=== PATIENT | female | born 1985 | race African-American/Black ===

== ENCOUNTER 2017-04-23 11:20 | Emergency (ER) | payer MEDICAID ==
[~2017-04-23] VITALS: Ht 170.2 cm; Wt 83.5 kg
[~2017-04-23 11:20] MED LIST: AMOXICILLIN500 MG ORAL; AUGMENTIN TAB875 MG ORAL; BACTRIM-DS1 EA ORAL; CYCLOBENZAPRINE10 MG ORAL; IBUPROFEN600 MG ORAL; LEVOTHYROXINE100 MCG ORAL; LEVOTHYROXINE150 MCG ORAL; NORCO 5-325 TA1 EAC1 ORAL; TIZANIDINE HCL4 MG ORAL
[2017-04-23 11:53] VITALS: BP 100/64
[2017-04-23] MEDS ORDERED: GABAPENTIN100 MG ORAL (12:38)
[2017-04-23] MEDS ORDERED: IBUPROFEN600 MG ORAL (12:38)
[2017-04-23 13:31] VITALS: BP 100/64
--- NOTE | 2017-04-23 18:50 | Diagnostic Imaging Report ---
Indication: Pain Technique: XRAY SHOULDER MIN 3V LEFT Comparison: None Findings: There is no acute fracture or dislocation. Calcifications noted in the left shoulder possibly reflective of calcific tendinitis. Imaged left lung is clear. Impression: No acute fracture or dislocation. Findings suggestive of calcific tendinitis of the left shoulder. MRI may be obtained for further evaluation as clinically indicated.
--- NOTE | 2017-04-23 18:52 | Diagnostic Imaging Report ---
Indication: Pain Technique: XRAY FOREARM 2 VIEWS LEFT Comparison: None Findings: There is no acute fracture or dislocation. The elbow and wrist articulations are preserved. No focal soft tissue abnormality is seen. No radiopaque foreign body. Impression: No acute fracture or dislocation.
--- NOTE | 2017-04-23 18:52 | Diagnostic Imaging Report ---
Indication: Pain Technique: XRAY HUMERUS 2V LEFT Comparison: None Findings: No acute fracture or dislocation. Elbow and shoulder joint are maintained. Calcification is noted in the left shoulder, better described on concurrent shoulder radiographs. Impression: No acute fracture or dislocation.
--- NOTE | 2017-04-24 21:49 | Emergency Room Report ---
History of Present Illness General Chief Complaint: Pain Source: Patient Present Illness HPI 31-year-old female presents ED complaining of left arm pain times one week. Denies any recent injury. Patient states she had similar pain in her right arm last year and was told by her PMD that she had "calcium deposits" in her arm. States that they completely resolved. Patient states the pain feels the same on the left arm now. Denies any chest pain. Pain is 10 out of 10, throbbing, nonradiating. No other aggravating relieving factors. Denies any other associated symptoms Allergies: Coded Allergies: No Known Allergies (Unverified , 07/08/13) Patient History Past Medical History: none Past Surgical History: none Pertinent Family History: none Social History: Denies: smoking, alcohol use, drug use Last Menstrual Period: 04/16/17 Now: No : 2 Para: 2 Immunizations: UTD Reviewed Nursing Documentation: PMH: Agreed, PSxH: Agreed Nursing Documentation-PMH Hx Hypertension: Yes Hx Gastrointestinal Problems: Yes - hypothyroid Review of Systems All Other Systems: negative except mentioned in HPI Physical Exam Vital Signs Date Time Temp Pulse Resp B/P (MAP) Pulse Ox O2 Delivery O2 Flow Rate FiO2 04/23/17 11:24 97.9 73 16 100/64 100 Room Air Sp02 EP Interpretation: reviewed, normal General Appearance: no apparent distress, alert, GCS 15, non-toxic Head: normocephalic, atraumatic Eyes: bilateral eye normal inspection, bilateral eye PERRL ENT: hearing grossly normal, normal pharynx, no angioedema, normal voice Neck: full range of motion, supple/symm/no masses Respiratory: chest non-tender, lungs clear, normal breath sounds, speaking full sentences Cardiovascular #1: regular rate, rhythm, no edema Cardiovascular #2: 2+ carotid (R), 2+ carotid (L), 2+ radial (R), 2+ radial (L) , 2+ dorsalis pedis (R), 2+ dorsalis pedis (L) Gastrointestinal: normal bowel sounds, non tender, soft, non-distended, no guarding, no rebound Rectal: deferred Genitourinary: normal inspection, no CVA tenderness Musculoskeletal: back normal, gait/station normal, normal range of motion, non- tender Neurologic: alert, oriented x3, responsive, motor strength/tone normal, sensory intact, speech normal Psychiatric: judgement/insight normal, memory normal, mood/affect normal, no suicidal/homicidal ideation Reflexes: 3+ bicep (R), 3+ bicep (L), 3+ tricep (R), 3+ tricep (L), 3+ knee (R) , 3+ knee (L) Skin: normal color, no rash, warm/dry, well hydrated Lymphatic: no adenopathy Medical Decision Making Diagnostic Impression: Primary Impression: Arm pain Qualified Codes: M79.602 - Pain in left arm ER Course Hospital Course 31-year-old female presents ED complaining of left arm pain no trauma Differential diagnoses include: Fracture, dislocation, sprain, contusion Clinical course Patient placed on stretcher. After initial history and physical, I ordered Xrays of L shoulder, L forearm, L humerus Xrays prelim read shows no acute fracture/dislocation. Evidence of calcified tendon in the left shoulder. No obvious calcium deposits in the soft tissue noted on the x-rays Discussed the findings with patient. Recommended followup with PMD. Diagnosis - arm pain Stable and discharged to home with prescription for Motrin, gabapentin. weight bear as tolerated. Followup with PMD. Return to ED if symptoms recur or worsen Other X-Ray Diagnostic Results Other X-Ray Diagnostic Results #1: X-Ray ordered: L shoulder # of Views/Limited Vs Complete: 3 View Indication: Pain EP Interpretation: Yes Interpretation: no dislocation, no soft tissue swelling, no fractures, other - calcific tendinitis L shoulder Impression: No acute disease Electronically Signed by: Electronically signed by Blas Cook MD Other X-Ray Diagnostic Results #2: X-Ray ordered: Left humerus # of Views/Limited Vs Complete: 2 View Indication: Pain EP Interpretation: Yes Interpretation: no dislocation, no soft tissue swelling, no fractures Impression: No acute disease Electronically Signed by: Electronically signed by Blas Cook MD Other X-Ray Diagnostic Results #3: X-Ray ordered: Left forearm # of Views/Limited Vs Complete: 2 View Indication: Pain EP Interpretation: Yes Interpretation: no dislocation, no soft tissue swelling, no fractures, nonspecific bowel gas Impression: No acute disease Electronically Signed by: Electronically signed by Blas Cook MD Last Vital Signs Date Time Temp Pulse Resp B/P (MAP) Pulse Ox O2 Delivery O2 Flow Rate FiO2 04/23/17 13:31 97.9 73 16 100/64 100 Room Air Status: improved Disposition: HOME, SELF-CARE Condition: Stable Scripts Gabapentin* (GABAPENTIN*) 100 Mg Capsule 100 MG ORAL THREE TIMES A DAY for 30 Days, CAP Prov: BLAS COOK M.D. 04/23/17 Ibuprofen* (MOTRIN*) 600 Mg Tablet 600 MG ORAL Q8H Y for For Pain, #30 TAB 0 Refills Prov: BLAS COOK M.D. 04/23/17 Patient Instructions: Myositis Ossificans-SportsMed BLAS COOK M.D. Apr 24, 2017 21:49
== END 2017-04-23 13:32 | disposition home or self-care (01) ==
LOC: EMR 11:50
DX: M79.602 Pain in left arm (principal); I10 Essential (primary) hypertension; E03.9 Hypothyroidism, unspecified
CPT/HCPCS: 99283

== ENCOUNTER 2020-04-24 12:57 | Emergency (ER) | payer MEDICAID, OTHER ==
[~2020-04-24] VITALS: Ht 170.2 cm; Wt 86.2 kg
[~2020-04-24 12:57] MED LIST changes: +GABAPENTIN100 MG ORAL
[2020-04-24 13:21] VITALS: BP 115/78
--- NOTE | 2020-04-24 13:21 | NUR ---
ED Nurse Note: Pt walkd in from home. states taht she "twisted up her arm last night while sleeping about 8pm" and that she had pain at her shoulder. Sling placed, Xray done. Vitals stable as documented on RA. Pt can move fingers, no numbness or tingling. SATURATOR TENDER intact
--- NOTE | 2020-04-24 13:42 | Emergency Room Report ---
History of Present Illness General Chief Complaint: Upper Extremity Injury Source: Patient Present Illness HPI 34-year-old female with no signal past medical history here complaining of left shoulder pain reporting that it might be dislocated however has range of motion. Reports that she was stretching out her arm as she felt a pop few days ago. Denies any tingling or numbness. Is neurovascularly intact. Denies pain radiation. Has not taken medication for symptom relief. Sitting comfortably with stable vital signs. Denies any fall or injury. Denies . 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 Patient History Past Medical History: see triage record Past Surgical History: none Pertinent Family History: none Last Menstrual Period: 2 weeks Now: No Immunizations: UTD Reviewed Nursing Documentation: PMH: Agreed; PSxH: Agreed Nursing Documentation-PMH Past Medical History: No History, Except For Hx Hypertension: Yes Hx Gastrointestinal Problems: Yes - hypothyroid Review of Systems All Other Systems: negative except mentioned in HPI Physical Exam Vital Signs Date Time Temp Pulse Resp B/P (MAP) Pulse Ox O2 Delivery O2 Flow Rate FiO2 04/24/20 13:12 98.2 68 20 116/77 (90) 97 Room Air Sp02 EP Interpretation: reviewed, normal General Appearance: no apparent distress, alert, GCS 15, non-toxic Head: normocephalic, atraumatic Eyes: bilateral eye normal inspection, bilateral eye PERRL ENT: hearing grossly normal, normal pharynx, no angioedema, normal voice Neck: full range of motion, supple/symm/no masses Respiratory: chest non-tender, lungs clear, normal breath sounds, speaking full sentences Cardiovascular #1: regular rate, rhythm, no edema Cardiovascular #2: 2+ carotid (R), 2+ carotid (L), 2+ radial (R), 2+ radial (L), 2+ dorsalis pedis (R), 2+ dorsalis pedis (L) Gastrointestinal: normal bowel sounds, non tender, soft, non-distended, no guarding, no rebound Rectal: deferred Musculoskeletal: back normal, non-tender, other - No impingement sign noted, patient is neurovascularly intact Neurologic: alert, motor strength/tone normal, oriented x3, sensory intact, responsive, speech normal Psychiatric: judgement/insight normal, memory normal, mood/affect normal, no suicidal/homicidal ideation Skin: no rash Lymphatic: no adenopathy Procedures Splinting Splinting : Consent: Verbal Location: Left shoulder Pre-Proc Neuro Vasc Exam: normal Post-Proc Neuro Vasc Exam: normal Patient Tolerated: Well Complications: None Progress Arm sling applied Medical Decision Making PA Attestation All my diagnosis and treatment plans were reviewed ad discussed with my supervising physician Dr. Reid Diagnostic Impression: Primary Impression: Shoulder sprain Additional Impression: Tendonitis ER Course 34-year-old female with no signal past medical history here complaining of left shoulder pain reporting that it might be dislocated however has range of motion. Reports that she was stretching out her arm as she felt a pop few days ago. Denies any tingling or numbness. Is neurovascularly intact. Denies pain radiation. Has not taken medication for symptom relief. Sitting comfortably with stable vital signs. Denies any fall or injury. Denies . Ddx considered but are not limited to : Tendinitis, shoulder sprain versus fracture versus dislocation Vital signs: are WNL, pt. is afebrile H&PE are most consistent with: Left shoulder sprain, tendinitis ORDERS: Left shoulder x-ray, left elbow x-ray, Robaxin, Voltaren gel due to the calcification noted on x-ray, Tylenol as patient reported that cannot take ibuprofen due to her son being bothered ED INTERVENTIONS: Arm sling applied patient take medication as directed DISCHARGE: At this time pt. is stable for d/c to home. Will provide printed patient care instructions, and any necessary prescriptions. Care plan and follow up instructions have been discussed with the patient prior to discharge. Patient take medication as directed, follow primary care provider, if worsening symptoms return to the emergency room Other X-Ray Diagnostic Results Other X-Ray Diagnostic Results #1: X-Ray ordered: Left shoulder # of Views/Limited Vs Complete: 3 View Indication: Pain EP Interpretation: Yes PA Xray: Interpretation reviewed, and agrees with findings. Interpretation: no dislocation, no soft tissue swelling, no fractures Impression: No acute disease Electronically Signed by: Matilde Rivera PA-C Other X-Ray Diagnostic Results #2: X-Ray ordered: Left elbow # of Views/Limited Vs Complete: 3 View Indication: Pain EP Interpretation: Yes ADEEL Xray: Interpretation reviewed, by supervising MD, and agrees with findings. Interpretation: no dislocation, no soft tissue swelling, no fractures Impression: No acute disease Electronically Signed by: Matilde Rivera PA-C Last Vital Signs Date Time Temp Pulse Resp B/P (MAP) Pulse Ox O2 Delivery O2 Flow Rate FiO2 04/24/20 13:12 98.2 68 20 116/77 (90) 97 Room Air Disposition: HOME, SELF-CARE Condition: Stable Scripts Diclofenac Sodium (VOLTAREN) 100 Gm Gel..gram. 2 GM TP TID, #100 GM Prov: Matilde Chinchilla 04/24/20 Acetaminophen* (TYLENOL EXTRA STRENGTH*) 500 Mg Tablet 500 MG ORAL Q8H PRN for Prn Headache/Temp > 101, #30 TAB 0 Refills Prov: Matilde Chinchilla 04/24/20 Methocarbamol* (ROBAXIN-500*) 500 Mg Tablet 500 MG ORAL TID PRN for For Pain, #15 TAB 0 Refills Prov: Matilde Chinchilla 04/24/20 Patient Instructions: Bicipital Tendonitis, Shoulder Sprain Additional Instructions: Take medication as directed, follow primary care provider, if worsening symptoms return to the emergency room Matilde Chinchilla Apr 24, 2020 13:42
[2020-04-24 14:00] VITALS: BP 132/80
--- NOTE | 2020-04-24 14:00 | NUR ---
ER DISCHARGE NOTE: Patient is cleared to be discharged per ERMD, pt is aox4, on room air, with stable vital signs. pt was given dc and prescription instructions, pt was able to verbalize understanding, pt id band and iv site removed without complications. pt is able to ambulate with steady gait. pt took all belongings.
[2020-04-24] MEDS ORDERED: ROBAXIN-500MG ORAL (14:21)
[2020-04-24] MEDS ORDERED: VOLTAREN100 G1 TP (14:21)
[2020-04-24] MEDS ORDERED: TYLENOL EXTRA500 MG ORAL (14:21)
--- NOTE | 2020-04-24 14:49 | Diagnostic Imaging Report ---
INDICATION: Elbow pain TECHNIQUE: Frontal, oblique, and lateral views of the left elbow COMPARISON: None FINDINGS: No acute fracture or dislocation. Elbow joint is maintained. No significant elbow joint effusion. No acute soft tissue abnormality. Olecranon enthesophyte is noted. IMPRESSION: No acute fracture or dislocation.
--- NOTE | 2020-04-24 15:28 | Diagnostic Imaging Report ---
INDICATION: Shoulder pain TECHNIQUE: Frontal internal and external rotation views as well as axillary view of the left shoulder COMPARISON: None FINDINGS: No acute fracture or dislocation. Ossific density adjacent to the greater tuberosity likely represents calcific tendinosis. Glenohumeral and acromio clavicular joints are maintained. Visualized left lung is clear. IMPRESSION: 1. No acute fracture or dislocation. 2. Suspected rotator cuff calcific tendinosis.
== END 2020-04-24 14:00 | disposition home or self-care (01) ==
LOC: EMR 13:58
DX: S43.402A Unspecified sprain of left shoulder joint, initial encounter (principal); I10 Essential (primary) hypertension; E03.9 Hypothyroidism, unspecified; X50.9XXA Other and unspecified overexertion or strenuous movements or postures, initial encounter; Y93.89 Activity, other specified; Y92.9 Unspecified place or not applicable
CPT/HCPCS: 73030; 73080; Z7502; 99284

== ENCOUNTER 2020-07-26 22:33 | Emergency (ER) | payer OTHER ==
[~2020-07-26] VITALS: Ht 170.2 cm; Wt 94.3 kg
[~2020-07-26 22:33] MED LIST changes: +ROBAXIN-500MG ORAL; +TYLENOL EXTRA500 MG ORAL; +VOLTAREN100 G1 TP
--- NOTE | 2020-07-26 22:50 | NUR ---
Pte came to ER ambulatoey c/o abdominal pain since 1 yifan ago accompained of nausea. Will continue to monitor.
[2020-07-26 23:38] LABS: BASOPHILS % (AUTO) 0.6 % (0.0-2.0); EOSINOPHILS % (AUTO) 0.7 % (0.0-3.0); HEMATOCRIT 39.9 % (37.0-47.0); HEMOGLOBIN 12.9 G/DL (12.0-16.0); LYMPHOCYTES % (AUTO) 30.3 % (20.0-45.0); MEAN CORPUSCULAR VOLUME 94 FL (80-99); MONOCYTES % (AUTO) 5.4 % (1.0-10.0); PLATELET COUNT 258 K/UL (150-450); RED BLOOD COUNT 4.24 M/UL (4.20-5.40); RED CELL DISTRIBUTION WIDTH 13.5 % (11.6-14.8); WHITE BLOOD COUNT 12.8 K/UL (4.8-10.8)
[2020-07-26 23:39] LABS: APPEARANCE,URINE CLEAR; BILIRUBIN, URINE NEGATIVE (NEGATIVE); COLOR,URINE PALE YELLOW; GLUCOSE, URINE (UA) NEGATIVE (NEGATIVE); KETONES,URINE 1+ (NEGATIVE); LEUKOCYTE ESTERASE ,URINE NEGATIVE (NEGATIVE); NITRITE,URINE NEGATIVE (NEGATIVE); PH,URINE 5 (4.5-8.0); PROTEIN,URINE 2+ (NEGATIVE); UROBILINOGEN,URINE NORMAL MG/DL (0.0-1.0)
[2020-07-26 23:45] VITALS: BP 125/90
[2020-07-26 23:49] LABS: CALCIUM 8.9 MG/DL (8.5-10.1); CREATININE 1.3 MG/DL (0.55-1.30)
[2020-07-26 23:53] LABS: ALBUMIN 3.2 G/DL (3.4-5.0); ALBUMIN/GLOBULIN RATIO 0.8 (1.0-2.7); BILIRUBIN,TOTAL 0.3 MG/DL (0.2-1.0)
--- NOTE | 2020-07-27 00:13 | Emergency Room Report ---
History of Present Illness General Chief Complaint: Abdominal Pain Source: Patient Present Illness HPI 35-year-old female A1 with past medical history of hypothyroidism and obesity presents to the emergency department with abdominal cramping and light vaginal bleeding. She denies passing clots or any significant pelvic trauma. She has soaked only 1 pad prior to arrival.. She is concerned because the cr amping feels similar to her previous miscarriage. She denies concern for STD, vaginal discharge, lightheadedness, syncope, chest pain, shortness of breath, nausea, vomiting, diarrhea, weakness, melena, hematochezia, hematuria, dysuria or any other symptoms. Last menstrual period was 17 days ago. Patient is sexually active and is unsure if she is . She did not take a home preg test. Last pap smear was 1 year ago and normal The patient's symptoms were gradual onset, severity was moderate, duration since 1 day. Quality: Light spotting Past medical history: Hypothyroidism Past surgical history: Denies Smoking: Denies Alcohol use: Denies Drug use: Denies Review of systems: CONST: No fevers or chills, No night sweats PULMONARY: No productive cough, No shortness of breath CARDIAC: No chest pain, No palpitations GI: No vomiting, No diarrhea , No melena_or_BRBPR : No dysuria, No hematuria, No discharge NEURO: No new_focal_weakness_or_numbness, No confusion, No vision changes 14 point Review of Systems is otherwise negative except per HPI Physical Exam: GENERAL: Awake_alert_ nontoxic, no acute distress Spo2 95% on RA -normal. Obese EYES: Extraocular muscles are intact. Conjunctivae clear. Lids without swelling ENT: External nose and ear normal_in_appearance. Oropharynx clear. Head_atraumatic, Moist_oral_mucosa NECK: No JVD. No meningismus. No thyromegaly. Supple. Trachea midline RESP: Normal respiratory effort. Symmetric rise. No stridor. Clear_to_auscultation_No_rales_No_wheezes CARDIAC: Regular rate and regular rhytm. No_significant pedal edema. ABDOMEN: Soft. Nondistended. Nontender_No_rebound_or_guarding. Negative May sign., Negative Rovsing's, negative obturator. No CVA tenderness to palpation MSK: Normal muscle tone, without rigidity. Extremities without asymmetric deformity or swelling. SKIN: Warm and dry. No visible cyanosis or pallor NEUROLOGIC: Alert, oriented x3. Motor_and_sensation_grossly_intact. No truncal ataxia. Gait_normal Psych: Normal mood and affect, normal judgment and insight - COORDINATION OF CARE Case was discussed with: Patient Any labs and imaging that were ordered were interpreted as part of the medical decision making: Medical Decision Making/Plan: Differential diagnosis includes, ectopic , hemorrhagic ovarian cyst, threatened , fibroids, severe anemia, dysfunctional uterine bleeding, vaginal / uterine mass, among others. test is NEGATIVE ruling out ectopic , or threatened / inevitable . The patients presentation is not consistent with hemorrhagic ovarian cyst, and has no significant tenderness on exam. Patients hemoglobin is not severely low, vitals are hemodynamically stable, and no symptoms of severe anemia (near syncope, lightheadedness, severe fatigue), no indication for blood transfusion at this time. Patient is sexually monogamous and has no concern for STI. She is declining vaginal speculum exam since she already had the transvaginal ultrasound. She declines empiric STD treatment. Vag bleeding likely 2/2 DUB. Recommend follow-up with [facility] within 1 week for Pap smear/EMB for dysfunctional uterine bleeding The patient appears stable for discharge home and follow with PMD in 2-3 days for reevaluation and further treatment. Pertinent results reviewed with the patient. I educated the patient on the current treatment plan including the risks, benefits, and alternatives. I also discussed the extent and limitations of the current evaluation. The patient expressed understanding and agreement with plan. I recommended PMD follow-up within 1-2 days. Also advised that the patient return to the Emergency Department as soon as possible if they experience any new, persistent, or worsening symptoms. 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 Nursing Documentation-PMH Past Medical History: Deferred Hx Hypertension: Yes Hx Gastrointestinal Problems: Yes - hypothyroid Physical Exam Vital Signs Date Time Temp Pulse Resp B/P (MAP) Pulse Ox O2 Delivery O2 Flow Rate FiO2 07/26/20 22:59 97.9 73 20 130/93 (105) 98 Room Air Sp02 EP Interpretation: reviewed, normal Medical Decision Making Diagnostic Impression: Primary Impression: Vaginal cramping Additional Impression: Vaginal bleeding Diagnostic POCUS Bedside Ultrasound Diagnostics: Comment US Pelvis Transabdominal and Transvaginal, Complete CLINICAL HISTORY: BLD TECHNIQUE: Real-time complete transabdominal and transvaginal pelvic ultrasound with image documentation. Transvaginal imaging was used for better evaluation of the endometrium and adnexa. COMPARISON: None. FINDINGS: Uterus/cervix: The uterus measures 7.4 x 5.4 x 5.3 cm. The endometrium measures 2.2 mm in this hyperechoic. There is fluid within the endocervical canal. No myometrial mass. Right ovary: Bilateral ovaries are not visualized. No adnexal mass. Left ovary: See above. Free fluid: No evidence of free fluid. Bladder: Unremarkable as visualized. Wall is normal thickness for degree of distention. Other findings: No intrauterine seen. IMPRESSION: 1. No intrauterine identified . Nonvisualized bilateral ovaries with no distinct adnexal mass or free fluid. While these findings may be associated with very early gestation, other etiologies such as missed , in progress or ectopic cannot be entirely excluded. Correlation with serial hCG measurements recommended along with short interval ultrasound to document cardiac activity and ensure normal . 2. Endocervical fluid, nonspecific may be associated with hemorrhage or infectious process . Clinical correlation recommended. Dictated By: Sofie Trujillo M.D. Last Vital Signs Date Time Temp Pulse Resp B/P (MAP) Pulse Ox O2 Delivery O2 Flow Rate FiO2 07/26/20 23:45 98.2 79 18 125/90 98 Room Air Disposition: HOME, SELF-CARE Admit Decision Time: 00:13 Condition: Stable Scripts Naproxen Sodium (Naproxen Cr) 500 Mg Tbmp.24hr 500 MG PO BID for 10 Days, #20 TAB Prov: Lavonne Araujo D.O. 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 Go to [facility] for Pap smear/EMB if your dysfunctional uterine bleeding continues. Follow-up with your doctor sooner if your condition requires a more timely clinical reevaluation. Return to the emergency department immediately if you feel that your condition is worsening or if you have any new or concerning symptoms. Review your discharge instructions and take any prescriptions given as instructed. [facility] PROVIDES FREE OR LOW-COST HEALTH SERVICES TO PEOPLE WHO CAN SHOW PROOF THAT THEY LIVE IN [facility]. TO FIND MORE CLINICS PARTNERED WITH [facility] TO PROVIDE SERVICE, PLEASE CALL . Lavonne Araujo D.O. Jul 27, 2020 00:13
[2020-07-27] MEDS ORDERED: NAPROXEN CR500 MG PO (00:14)
[2020-07-27] MEDS ORDERED: Ketorolac 30mg Inj IV ONE (00:15)
--- NOTE | 2020-07-27 00:30 | NUR ---
Patient in bed in comfortable position and stable condition. All vitals signs were taken within normal range. Urine and blood were collected and sent them to the lab. All medications were administered without adverse reaction. Patient continuous attached to the monitor.
--- NOTE | 2020-07-27 01:28 | Diagnostic Imaging Report ---
EXAM: US Pelvis Transabdominal and Transvaginal, Complete CLINICAL HISTORY: BLD TECHNIQUE: Real-time complete transabdominal and transvaginal pelvic ultrasound with image documentation. Transvaginal imaging was used for better evaluation of the endometrium and adnexa. COMPARISON: None. FINDINGS: Uterus/cervix: The uterus measures 7.4 x 5.4 x 5.3 cm. The endometrium measures 2.2 mm in this hyperechoic. There is fluid within the endocervical canal. No myometrial mass. Right ovary: Bilateral ovaries are not visualized. No adnexal mass. Left ovary: See above. Free fluid: No evidence of free fluid. Bladder: Unremarkable as visualized. Wall is normal thickness for degree of distention. Other findings: No intrauterine seen. IMPRESSION: 1. No intrauterine identified . Nonvisualized bilateral ovaries with no distinct adnexal mass or free fluid. While these findings may be associated with very early gestation, other etiologies such as missed , in progress or ectopic cannot be entirely excluded. Correlation with serial hCG measurements recommended along with short interval ultrasound to document cardiac activity and ensure normal . 2. Endocervical fluid, nonspecific may be associated with hemorrhage or infectious process . Clinical correlation recommended.
[2020-07-27 02:16] VITALS: BP 139/87
--- NOTE | 2020-07-27 02:18 | NUR ---
Patient was discharge home as EDP ordered. All vital signs were taken within normal range. Patient . All prescriptions and instructions were given to the patient . Patient verbalized understanding. patient left the hospital in stable condition .
== END 2020-07-27 02:15 | disposition home or self-care (01) ==
LOC: EMR 23:36
DX: R10.9 Unspecified abdominal pain (principal); N93.9 Abnormal uterine and vaginal bleeding, unspecified; I10 Essential (primary) hypertension; E03.9 Hypothyroidism, unspecified
CPT/HCPCS: 36415; 76830; 76856; 80053; 81003; 81025; 83690; 84702; 85025; 85610; 85730; 86850; 86900; 86901; 96374; J1885; Z7502; 99284